=== PATIENT | male | born 1980 | race Caucasian/White ===

== ENCOUNTER 2017-12-19 16:53 | Emergency (ER) | payer BC ==
[~2017-12-19] VITALS: Ht 175.3 cm; Wt 80.7 kg
[2017-12-19] MEDS ORDERED: IBUPROFEN 400 MG TABLET PO ONE (17:30)
[2017-12-19] MEDS ORDERED: ACETAMINOPHEN 325 MG TABLET PO ONE (17:30)
[2017-12-19] MEDS ORDERED: ACETAMINOPHEN 325 MG TABLET ONE (17:40)
[2017-12-19] MEDS ORDERED: IBUPROFEN 400 MG TABLET ONE (17:40)
[2017-12-19 18:58] LABS: CALCIUM, SERUM 9.1 mg/dL (8.5-10.1); CREATININE 1.1 mg/dL (0.6-1.3); POTASSIUM 3.9 mmol/L (3.5-5.1)
[2017-12-19 19:04] LABS: ALBUMIN 3.9 g/dL (3.4-5.0); BILIRUBIN,TOTAL 0.5 mg/dL (0.2-1.0); TOTAL PROTEIN, SERUM 7.2 g/dL (6.4-8.2)
--- NOTE | 2017-12-19 19:20 | NUR ---
ASSUMED CARE OF PT.
[2017-12-19 19:38] LABS: APPEARANCE,URINE Clear (CLEAR); BILIRUBIN,URINE Negative (NEGATIVE); BLOOD, URINE Negative Ery/uL (NEGATIVE); COLOR,URINE Yellow (YELLOW); KETONES,URINE Negative (NEGATIVE); LEUKOCYTE ESTERASE ,URINE Negative (NEGATIVE); NITRITE, URINE Negative (NEGATIVE); PH,URINE 5.5 (5.0-8.0); PROTEIN,URINE Negative (NEGATIVE); UGLUCOSE Negative (NEGATIVE); UROBILINOGEN,URINE 0.2 EU/dL (0.2)
--- NOTE | 2017-12-19 20:07 | NUR ---
Patient discharged to home in stable condition. Written and verbal after care instructions given. Patient verbalizes understanding of instruction AND RX. PT AMBULATED OUT WITH A SLOW STEADY GAIT WITH PROJECT SCHEDULER AND ANOTHER LAFD. VSS.
[2017-12-19 20:10] VITALS: BP 120/67
== END 2017-12-19 20:11 | disposition home or self-care (01) ==
LOC: ER 16:55
DX: S33.6XXA Sprain of sacroiliac joint, initial encounter (principal); S39.012A Strain of muscle, fascia and tendon of lower back, initial encounter; S30.0XXA Contusion of lower back and pelvis, initial encounter; W22.8XXA Striking against or struck by other objects, initial encounter; Y93.89 Activity, other specified; Y92.89 Other specified places as the place of occurrence of the external cause; Y99.0 Civilian activity done for income or pay
CPT/HCPCS: 36415; 72110-TC; 72220-TC; 80053-TC; 81000-TC; A4606; Z7610